=== PATIENT | female | born 1955 | race Caucasian/White ===

== ENCOUNTER 2017-01-04 11:52 | Observation (INO) | payer OTHER ==
[~2017-01-04] VITALS: Ht 158.8 cm; Wt 51.9 kg
[2017-01-04] VITALS (7 sets, daily range): BP systolic 115–134; BP diastolic 57–65; PULSE 76–103; RESP 14–18; TEMP 97.9–98.3; O2SAT 96–100
[~2017-01-04 11:52] MED LIST: ALPR.25 PO; OXYC10TA8 PO; ZOFR4TAB3 PO
[2017-01-04] MEDS ORDERED: SODIUM CHLOR 0.9% 1000 ML INJ 1,000 ML IV SCH (12:11)
[2017-01-04] MEDS ORDERED: TAMOPOW11 PO (12:15)
[2017-01-04] MEDS ORDERED: ZOFR4TAB3 SL (12:15)
[2017-01-04] MEDS ORDERED: OXYC-395 PO (12:15)
[2017-01-04] MEDS ORDERED: ONDANSETRON HCL 4 MG/2 ML VIAL IVP ONE (12:15)
[2017-01-04] MEDS ORDERED: ALPR0.25 PO (12:15)
[2017-01-04] MEDS ORDERED: CEFU250T PO (12:15)
[2017-01-04] MEDS ORDERED: ASPIRIN 81 MG CHEW TAB PO ONE (12:15)
--- NOTE | 2017-01-04 12:29 | PD ---
HPI Chief Complaint: Chest Pain Time Seen by Provider: 12:21 Travel History International Travel<30 days: No Contact w/Intl Traveler<30days: No Traveled to known affect area: No History of Present Illness HPI Patient comes into the advice of her oncologist Dr. Cai for evaluation of chest pain that began around 2-3am that awoke her with the feeling of sharp substernal chest pain radiating to her back with associated feeling short of breath. Patient states she may have coughed causing pain, but is uncertain. Pain is constant and radiates to her back. Pain is worse with coughing, deep inspiration, and certain movement. Patient denies doing anything for this. Denies anything making the pain better. Patient states she has been feeling that she was coming down with something since Tuesday and was started on antibiotics by her primary care doctor. Patient has been taking antibiotics along with Tylenol for subjective fevers last dose yesterday. Patient states on Tuesday started having a scratchy throat and a cough. Patient reports continued nausea and vomiting from her chemotherapy and is unchanged since onset of symptoms. Denies any headache, neck pain, abdominal pain, diarrhea, or numbness or tingling anywhere. Patient states she initially got sick from her , who had similar prior to her getting sick. PFSH Past Medical History Blood Disorders: No Anxiety: Yes Depression: No Heart Rhythm Problems: No Cancer: Yes (R. breast cancer-lymph nodes ) Cardiovascular Problems: Yes (HTN) High Cholesterol: Yes Chemotherapy: Yes Chest Pain: Yes Congestive Heart Failure: No Diabetes: No Endocrine: No Genitourinary: Yes (left kidney is smaller than right) Hypertension: Yes Immune Disorder: Yes Implanted Vascular Access Dvce: Yes Kidney Stones: No Musculoskeletal: Yes Neurologic: No Psychiatric: Yes Reproductive: No Respiratory: No Radiation Therapy: No Renal Failure: No Sickle Cell Disease: No Thyroid Disease: No Tetanus Vaccination: > 5 Years Influenza Vaccination: No Past Surgical History Abdominal Surgery: No AICD: No Arteriovenous Shunt: No Body Medical Devices: infusaport Cardiac Surgery: No Section: Yes (1975) Ear Surgery: Yes Endocrine Surgery: Yes Eye Surgery: Yes Genitourinary Surgery: No Gynecologic Surgery: Yes (hysterectomy, , rt. breast lumpectomy) Hysterectomy: Yes Insulin Pump: No Joint Replacement: No Oral Surgery: Yes Thoracic Surgery: No Tonsillectomy: Yes Other Surgery: Yes (lumpectomy right side ) Social History Alcohol Use: Yes (RARELY) Tobacco Use: No Substance Use: No Allergies-Medications (Allergen,Severity, Reaction): Coded Allergies: Codeine (Verified Allergy, Severe, ITCHING, 01/04/17) Tenormin (Verified Allergy, Severe, CRAMPING / RASH, 01/04/17) Visken (Verified Allergy, Severe, CRAMPING, 01/04/17) Reported Meds & Prescriptions Reported Meds & Active Scripts Active Reported Cefuroxime (Cefuroxime Axetil) 250 Mg Tab 250 Mg PO BID Tamoxifen Citrate (Tamoxifen Citrate (Bulk)) 1 Pow Pow 20 Mg PO Oxycodone (Oxycodone HCl) 10 Mg Tab 10 Mg PO Q4H PRN Alprazolam 0.25 Mg Tab 0.25 Mg PO Q6H PRN Zofran Odt (Ondansetron Odt) 4 Mg Tab 4 Mg SL Q6HR PRN Review of Systems Except as stated in HPI: all other systems reviewed are Neg Physical Exam Narrative GENERAL: Well-developed, well nourished, in no acute distress, and non-ill appearing. SKIN: Focused skin assessment warm and dry. HEAD: Atraumatic. Normocephalic. EYES: Pupils equal and round. EOMI. No scleral icterus. No injection or drainage. ENT: No nasal bleeding or discharge. Mucous membranes pink and moist. Tympanic membranes pearly andrews bilaterally. Posterior pharynx nonerythematous and without exudate. Uvula is midline. NECK: Trachea midline. No JVD. Supple. No nuclear rigidity. CARDIOVASCULAR: Regular rate and rhythm. No murmur appreciated. RESPIRATORY: No accessory muscle use. No respiratory distress. Clear to auscultation. Breath sounds equal bilaterally. GASTROINTESTINAL: Abdomen soft, non-tender, nondistended. Hepatic and splenic margins not palpable. Normal bowel sounds 4. No pulsatile mass. MUSCULOSKELETAL: No obvious deformities. No clubbing. No cyanosis. No edema. Full range of motion. NEUROLOGICAL: Awake and alert. No obvious cranial nerve deficits. Motor grossly within normal limits. Normal speech. PSYCHIATRIC: Appropriate mood and affect; insight and judgment normal. Data Data Last Documented VS Vital Signs Date Time Temp Pulse Resp B/P Pulse Ox O2 Delivery O2 Flow Rate FiO2 01/04/17 12:38 85 18 118/57 97 Room Air 01/04/17 11:54 98.3 Orders Electrocardiogram (01/04/17 12:11) Ckmb (Isoenzyme) Profile (01/04/17 12:11) Complete Blood Count With Diff (01/04/17 12:11) Magnesium (Mg) (01/04/17 12:11) Prothrombin Time / Inr (Pt) (01/04/17 12:11) Act Partial Throm Time (Ptt) (01/04/17 12:11) Troponin I (01/04/17 12:11) Chest, Single Ap (01/04/17 12:11) Ecg Monitoring (01/04/17 12:11) Bilateral Bp Monitoring (01/04/17 12:11) Iv Access Insert/Monitor (01/04/17 12:11) Oximetry (01/04/17 12:11) Oxygen Administration (01/04/17 12:11) Aspirin Chew (Aspirin Chew) (01/04/17 12:15) Sodium Chloride 0.9% Flush (Ns Flush) (01/04/17 12:15) Lactic Acid Sepsis Protocol (01/04/17 12:11) Blood Culture (01/04/17 12:11) Comprehensive Metabolic Panel (01/04/17 12:11) Influenzae A/B Antigen (01/04/17 12:11) Group A Rapid Strep Screen (01/04/17 12:11) Lipase (01/04/17 12:11) Ondansetron Inj (Zofran Inj) (01/04/17 12:15) Sodium Chlor 0.9% 1000 Ml Inj (Ns 1000 M (01/04/17 12:11) Urinalysis - C+S If Indicated (01/04/17 12:22) Ct Pulmonary Angiogram (01/04/17 ) Strep Culture (Group A) (01/04/17 12:35) Urine Culture (01/04/17 12:40) Cefepime Inj (Maxipime Inj) (01/04/17 13:42) Sodium Chlorid 0.9% 500 Ml Inj (Ns 500 M (01/04/17 14:30) Ibuprofen (Motrin) (01/04/17 15:45) Oxycodone-Acetamin 10-325 Mg (Percocet 1 (01/04/17 16:15) Admit Order (Ed Use Only) (01/04/17 16:08) Labs Laboratory Tests Test 01/04/17 01/04/17 01/04/17 12:25 12:32 12:40 White Blood Count 1.7 TH/MM3 Red Blood Count 4.34 MIL/MM3 Hemoglobin 13.1 GM/DL Hematocrit 37.4 % Mean Corpuscular Volume 86.2 FL Mean Corpuscular Hemoglobin 30.3 PG Mean Corpuscular Hemoglobin 35.1 % Concent Red Cell Distribution Width 14.5 % Platelet Count 106 TH/MM3 Mean Platelet Volume 7.9 FL Neutrophils (%) (Auto) 54.0 % Lymphocytes (%) (Auto) 29.7 % Monocytes (%) (Auto) 15.3 % Eosinophils (%) (Auto) 0.7 % Basophils (%) (Auto) 0.3 % Neutrophils # (Auto) 0.9 TH/MM3 Lymphocytes # (Auto) 0.5 TH/MM3 Monocytes # (Auto) 0.3 TH/MM3 Eosinophils # (Auto) 0.0 TH/MM3 Basophils # (Auto) 0.0 TH/MM3 CBC Comment AUTO DIFF Differential Total Cells 100 Counted Neutrophils % (Manual) 41 % Band Neutrophils % 13 % Lymphocytes % 37 % Monocytes % 9 % Neutrophils # (Manual) 0.9 TH/MM3 Differential Comment FINAL DIFF MANUAL Platelet Estimate LOW Platelet Morphology Comment NORMAL Prothrombin Time 10.7 SEC Prothromb Time International 1.0 RATIO Ratio Activated Partial 28.1 SEC Thromboplast Time Sodium Level 142 MEQ/L Potassium Level 3.9 MEQ/L Chloride Level 105 MEQ/L Carbon Dioxide Level 29.5 MEQ/L Anion Gap 8 MEQ/L Blood Urea Nitrogen 18 MG/DL Creatinine 1.05 MG/DL Estimat Glomerular Filtration 53 ML/MIN Rate Random Glucose 85 MG/DL Calcium Level 8.6 MG/DL Magnesium Level 1.9 MG/DL Total Bilirubin 0.3 MG/DL Aspartate Amino Transf 16 U/L (AST/SGOT) Alanine Aminotransferase 15 U/L (ALT/SGPT) Alkaline Phosphatase 72 U/L Total Creatine Kinase 69 U/L Troponin I LESS THAN 0.02 NG/ML Total Protein 6.4 GM/DL Albumin 3.6 GM/DL Lipase 144 U/L Lactic Acid Level 0.9 mmol/L Urine Color YELLOW Urine Turbidity HAZY Urine pH 5.5 Urine Specific [place] 1.019 Urine Protein 100 mg/dL Urine Glucose (UA) NEG mg/dL Urine Ketones TRACE mg/dL Urine Occult Blood TRACE Urine Nitrite NEG Urine Bilirubin NEG Urine Urobilinogen LESS THAN 2.0 MG/DL Urine Leukocyte Esterase SMALL Urine WBC 16 /hpf Urine Squamous Epithelial 15 /hpf Cells Urine Transitional Epithelial 2 /hpf Cells Urine Bacteria RARE /hpf Urine Hyaline Casts 1 /lpf Urine Mucus FEW /lpf Microscopic Urinalysis Comment CULTURE INDICATED MDM Medical Decision Making Medical Screen Exam Complete: Yes Emergency Medical Condition: Yes Interpretation(s) EKG reviewed by Dr. Fairchild, show normal sinus rhythm with a ventricular rate of 83. No STEMI. Differential Diagnosis Sepsis, pneumonia, acute coronary syndrome, pericarditis, myocarditis, endocarditis, pancreatitis, PE, influenza, strep pharyngitis, costochondritis, other Narrative Course Patient reassessed status post CTA and reports her chest pain got severe with laying flat for CTA. Patient reports pain improved once sitting back up. Patient was asked to pain forward which she reports even more improvement of her pain even more. Patient was seen and exam. Initial laboratory and radiological studies were obtained and reviewed. Discussed patient with Dr. Fairchild, who is in agreement with plan of care and disposition. Discussed all findings and plan of care with patient who is agreeable for admission. All questions were answered. Sepsis Criteria SIRS Criteria (2 or more): Heart rate over 90, WBC > 69138, < 4000 or > 10% bands Sepsis Criteria (SIRS+source): Infect source susp/known Physician Communication Physician Communication [id number] I discussed patient with Dr. Moreno, patient's oncologist, who is okay with patient having ibuprofen and does not feel like his anything more to do from his standpoint and is in agreement with admitting patient to hospital. [address] Zurita, who is agreeable to admit the patient. Diagnosis Primary Impression: Sepsis Qualified Code: A41.9 - Sepsis, due to unspecified organism Additional Impressions: Pericarditis Qualified Code: I30.9 - Acute pericarditis, unspecified type UTI (urinary tract infection) Qualified Code: N39.0 - Urinary tract infection without hematuria, site unspecified Admitting Information Admitting Physician Requests: Admit Ernie Rangel Jan 04, 2017 12:29
[2017-01-04 12:45] LABS: AUTOMATED NEUTROPHIL # 0.9 TH/MM3 (1.8-7.7); BASOPHIL % 0.3 % (0.0-2.0); EOSINOPHIL % 0.7 % (0.0-4.0); HEMATOCRIT 37.4 % (35.0-46.0); LYMPH % 29.7 % (9.0-44.0); LYMPHOCYTE # 0.5 TH/MM3 (1.0-4.8); MEAN CELL VOLUME 86.2 FL (80.0-100.0); MEAN CORPUSCULAR HEMOGLOBIN 30.3 PG (27.0-34.0); MEAN CORPUSCULAR HGB CONC 35.1 % (32.0-36.0); MONO % 15.3 % (0.0-8.0); PLATELET COUNT 106 TH/MM3 (150-450); RED BLOOD COUNT 4.34 MIL/MM3 (4.00-5.30); RED CELL DISTRIBUTION WIDTH 14.5 % (11.6-17.2); WHITE BLOOD COUNT 1.7 TH/MM3 (4.0-11.0)
[2017-01-04 12:46] LABS: HEMO FLAGS AUTO DIFF
[2017-01-04 12:53] LABS: APTT (PATIENT) 28.1 SEC (24.3-30.1); PROTHROMBIN TIME - PATIENT 10.7 SEC (9.8-11.6)
[2017-01-04 12:59] LABS: ALT (GPT) 15 U/L (10-53); ANION GAP 8 MEQ/L (5-15); AST (GOT) 16 U/L (15-37); BICARBONATE 29.5 MEQ/L (21.0-32.0); BLOOD UREA NITROGEN 18 MG/DL (7-18); CHLORIDE 105 MEQ/L (98-107); GLOMERULAR FILTRATION RATE 53 ML/MIN (>89); MAGNESIUM 1.9 MG/DL (1.5-2.5); POTASSIUM 3.9 MEQ/L (3.5-5.1); SODIUM (NA) 142 MEQ/L (136-145)
[2017-01-04 13:03] LABS: ALKALINE PHOSPHATASE 72 U/L (45-117); TOTAL BILIRUBIN ADULT 0.3 MG/DL (0.2-1.0)
[2017-01-04 13:06] LABS: BACTERIA, URINE RARE /hpf; BLOOD, URINE TRACE (NEG); COMMENT (UR) CULTURE INDICATED; CULTURE IF INDICATED CULTURE INDICATED; GLUCOSE,URINE NEG (NEG); HYALINE CAST, URINE 1 /lpf (RARE); KETONE, URINE TRACE mg/dL (NEG); MUCUS URINE FEW /lpf (OCC); NITRITE,URINE NEG (NEG); PH, URINE 5.5 (5.0-8.5); SQUAMOUS EPITHELIAL CELL URINE 15 /hpf (0-5); TRANSITIONAL EPI CELLS, URINE 2 /hpf; URINE COLOR YELLOW (YELLW/STRAW)
[2017-01-04 13:16] LABS: CREATINE KINASE 69 U/L (26-192)
[2017-01-04 13:17] LABS: BANDS 13 % (0-6); NEUTROPHIL # MANUAL DIFF 0.9 TH/MM3 (1.8-7.7); POLYS (SEG NEUTROPHILS) 41 % (16-70); WBC DIFF SAMPLE 100
[2017-01-04 13:18] LABS: PLATELET ESTIMATE SMEAR LOW (NORMAL); PLATELET MORPHOLOGY NORMAL (NORMAL); SCAN/DIFF FINAL DIFF MANUAL
[2017-01-04] MEDS ORDERED: CEFEPIME INJ 2,000 MG in SODIUM CHLORIDE 0.9% INJ 100 ML IV STA (13:42)
--- NOTE | 2017-01-04 14:06 | RADRPT ---
EXAM DATE/TIME: 01/04/2017 12:28 [facility] COMPARISON: No previous studies available for comparison. INDICATIONS : Cough MEDICAL HISTORY : Carcinoma, breast. SURGICAL HISTORY : None. ENCOUNTER: Initial ACUITY: 3 days PAIN SCORE: 0/10 LOCATION: Bilateral chest FINDINGS: A single view of the chest demonstrates the lungs to be symmetrically aerated without evidence of mas s, infiltrate or effusion. The cardiomediastinal contours are unremarkable. Osseous structures are intact. [id number] is in place via right subclavian approach with its tip in the superior vena cav a. CONCLUSION: 1. No acute cardiopulmonary disease. Thom Sellers MD on January 04, 2017 at 14:04 Board Certified Radiologist. This report was verified electronically.
[2017-01-04] MEDS ORDERED: SODIUM CHLORID 0.9% 500 ML INJ 500 ML IV ONE (14:30)
[2017-01-04] MEDS ORDERED: IOHEXOL 350 MG/ML 10 ML VIAL (for RAD DIAG) IV ONE (14:51)
--- NOTE | 2017-01-04 15:18 | RADRPT ---
EXAM DATE/TIME: 01/04/2017 14:51 [facility] COMPARISON: No previous studies available for comparison. INDICATIONS : Chest pain and cough. IV CONTRAST: 50 cc Omnipaque 350 (iohexol) IV RADIATION DOSE: 21.72 CTDIvol (mGy) MEDICAL HISTORY : Hypertension. Carcinoma, breast. SURGICAL HISTORY : None. ENCOUNTER: Initial ACUITY: 1 week PAIN SCALE: 4/10 LOCATION: Bilateral chest TECHNIQUE: Volumetric scanning of the chest was performed using a pulmonary embolism protocol MIP images were re constructed. Using automated exposure control and adjustment of the mA and/or kV according to patien t size, radiation dose was kept as low as reasonably achievable to obtain optimal diagnostic quality images. FINDINGS: PULMONARY ARTERIES: No filling defects are seen in the pulmonary arteries through the segmental level. LUNGS: There is no consolidation or pneumothorax . No concerning pulmonary nodule is visualized. PLEURAE: There is no pleural thickening or pleural effusion. MEDIASTINUM: There is good visualization of the great vessels of the middle mediastinum. No evidence of mediastin al or hilar adenopathy/mass. MUSCULOSKELETAL: Within normal limits for patient age. MISCELLANEOUS: The visualized upper abdominal organs demonstrate no acute abnormality. CONCLUSION: Normal examination. Fahad Miramontes MD on January 04, 2017 at 15:11 Board Certified Radiologist. This report was verified electronically.
[2017-01-04] MEDS ORDERED: IBUPROFEN 800 MG TAB PO ONE (15:45)
[2017-01-04] MEDS ORDERED: oxyCODONE/ACETAMINOPHEN 10 MG/325 MG TAB PO ONE (16:15)
--- NOTE | 2017-01-04 16:52 | HHI.HP ---
HPI Service CP Hospitalists Primary Care Physician Alphonso Taylor MD Admission Diagnosis chest pain. cough Chief Complaint: chest pain/cough Travel History International Travel<30 Days: No Contact w/Intl Traveler <30 Da: No Traveled to Known Affected Are: No History of Present Illness Pt is 61 yo with hx breast ca on chemo with Dr Cai. Reports developing a scratchy throat then awoke with ant cp with cough and some discomfort taking a deep breath. some f/c. no n/v/d. The concern in ED was for pericarditis. ED called oncology and decision made to admit her for evaluation. Pt has been on abx per her pcp over the weekend. Review of Systems Other cough ant lower chest/upper abdomen pain worse with palpation/cough scratchy throat. 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 - Pt s/p right breast lumpectomy with sentinel node biopsy in 01/2016 - Pt is currently on chemotherapy... follows with Dr. Cai. -anxiety -ileus Reported Medications Cefuroxime (Cefuroxime Axetil) 250 Mg Tab 250 Mg PO BID Tamoxifen Citrate (Tamoxifen Citrate (Bulk)) 1 Pow Pow 20 Mg PO Oxycodone (Oxycodone HCl) 10 Mg Tab 10 Mg PO Q4H PRN Alprazolam 0.25 Mg Tab 0.25 Mg PO Q6H PRN Zofran Odt (Ondansetron Odt) 4 Mg Tab 4 Mg SL Q6HR PRN Allergies: Coded Allergies: Codeine (Verified Allergy, Severe, ITCHING, 01/04/17) Tenormin (Verified Allergy, Severe, CRAMPING / RASH, 01/04/17) Visken (Verified Allergy, Severe, CRAMPING, 01/04/17) Family History nc Social History currently no tob/etoh Physical Exam Vital Signs anxious heart reg. no murmer/rub lung course bs right lung abd s/nt ext no edema tenderness over ant chest wall around cartilages/sternum and epigastrium. Vital Signs Date Time Temp Pulse Resp B/P Pulse Ox O2 Delivery O2 Flow Rate FiO2 01/04/17 16:25 81 18 120/61 100 Room Air 01/04/17 12:38 85 18 118/57 97 Room Air 01/04/17 12:18 97 Room Air 01/04/17 12:18 18 97 Room Air 01/04/17 12:04 94 18 96 Room Air 01/04/17 11:54 98.3 103 14 119/59 97 Laboratory Laboratory Tests Test 01/04/17 01/04/17 01/04/17 12:25 12:32 12:40 White Blood Count 1.7 Red Blood Count 4.34 Hemoglobin 13.1 Hematocrit 37.4 Mean Corpuscular Volume 86.2 Mean Corpuscular Hemoglobin 30.3 Mean Corpuscular Hemoglobin 35.1 Concent Red Cell Distribution Width 14.5 Platelet Count 106 Mean Platelet Volume 7.9 Neutrophils (%) (Auto) 54.0 Lymphocytes (%) (Auto) 29.7 Monocytes (%) (Auto) 15.3 Eosinophils (%) (Auto) 0.7 Basophils (%) (Auto) 0.3 Neutrophils # (Auto) 0.9 Lymphocytes # (Auto) 0.5 Monocytes # (Auto) 0.3 Eosinophils # (Auto) 0.0 Basophils # (Auto) 0.0 CBC Comment AUTO DIFF Differential Total Cells 100 Counted Neutrophils % (Manual) 41 Band Neutrophils % 13 Lymphocytes % 37 Monocytes % 9 Neutrophils # (Manual) 0.9 Differential Comment FINAL DIFF MANUAL Platelet Estimate LOW Platelet Morphology Comment NORMAL Prothrombin Time 10.7 Prothromb Time International 1.0 Ratio Activated Partial 28.1 Thromboplast Time Sodium Level 142 Potassium Level 3.9 Chloride Level 105 Carbon Dioxide Level 29.5 Anion Gap 8 Blood Urea Nitrogen 18 Creatinine 1.05 Estimat Glomerular Filtration 53 Rate Random Glucose 85 Calcium Level 8.6 Magnesium Level 1.9 Total Bilirubin 0.3 Aspartate Amino Transf 16 (AST/SGOT) Alanine Aminotransferase 15 (ALT/SGPT) Alkaline Phosphatase 72 Total Creatine Kinase 69 Troponin I LESS THAN 0.02 Total Protein 6.4 Albumin 3.6 Lipase 144 Lactic Acid Level 0.9 Urine Color YELLOW Urine Turbidity HAZY Urine pH 5.5 Urine Specific [place] 1.019 Urine Protein 100 Urine Glucose (UA) NEG Urine Ketones TRACE Urine Occult Blood TRACE Urine Nitrite NEG Urine Bilirubin NEG Urine Urobilinogen LESS THAN 2.0 Urine Leukocyte Esterase SMALL Urine WBC 16 Urine Squamous Epithelial 15 Cells Urine Transitional Epithelial 2 Cells Urine Bacteria RARE Urine Hyaline Casts 1 Urine Mucus FEW Microscopic Urinalysis Comment CULTURE INDICATED Date/Time Procedure Status Source Growth 01/04/17 12:40 Urine Culture Received Urine Clean Catch Pending 01/04/17 12:35 Group A Streptococcus Screen (OVI) - Final Complete Throat 01/04/17 12:35 Group A Streptococcus Screen Received Throat Pending 01/04/17 12:30 Influenza Types A,B Antigen (OVI) - Final Complete Nasal Washing NEGATIVE FOR FLU A AND B ANTIGEN.... 01/04/17 12:30 Aerobic Blood Culture Received Blood Peripheral Pending 01/04/17 12:30 Anaerobic Blood Culture Received Blood Peripheral Pending Result Diagram: 01/04/17 1225 01/04/17 1225 Assessment and Plan Problem List: (1) Chest pain Status: Acute Plan: Pt seems to have started with uri moving into upper chest. coughing with associated ant cp and tenderness on exam. probably costochondritis. no pulmonary embolism on CTA. no areas of PNA on CTA. will evaluate the myocardium and pericardium for inflammatory process. thrombocytopenia/leukopenia felt related to chemo. viral illness also considered. echo ordered. cont bx solumedrol/nebs inc spirometer. oncology evaluation. dvt prophylaxis. (2) Leukopenia Status: Acute Plan: see above (3) Thrombocytopenia Status: Acute Plan: see above (4) Breast cancer Status: Chronic Plan: chemo agents per Dr Ayala Zurita,Blair Chen MD Jan 04, 2017 16:52
[2017-01-04] MEDS ORDERED: ONDANSETRON HCL 4 MG/2 ML VIAL IV PUSH PRN (17:15)
[2017-01-04] MEDS ORDERED: ALPRAZolam 0.25 MG TAB PO PRN (17:15)
[2017-01-04] MEDS ORDERED: LEVOFLOXACIN 500 MG TAB PO SCH (18:00)
[2017-01-04] MEDS: methylPREDNISolone SOD SUCC 125 MG/2 ML VIAL IV PUSH SCH ×2 (18:01→22:51)
[2017-01-04] MEDS: SODIUM CHLORIDE 0.9% FLUSH 10 ML FLUSH IVF PRN (22:52)
[2017-01-05] VITALS: BP 130/63; PULSE 79; RESP 16; TEMP 98.1; O2SAT 96
[2017-01-05 04:00] VITALS: BP 118/65; PULSE 74; RESP 16; TEMP 97.6; O2SAT 97
[2017-01-05] MEDS: methylPREDNISolone SOD SUCC 125 MG/2 ML VIAL IV PUSH SCH ×3 (05:20→18:34)
--- NOTE | 2017-01-05 05:27 | MB ---
cc: AIDEN KENT DATE OF 1955. DATE OF CONSULTATION 01/04/2017 REASON FOR CONSULTATION Patient with a history of breast cancer who is currently getting adjuvant anti-HER2 therapy who presents today with atypical chest pain. CHIEF COMPLAINT Chest discomfort. HISTORY OF PRESENT ILLNESS Ms. High is a 61-year-old female who has a past medical history of invasive ductal carcinoma of the right breast. This was a poorly differentiated breast carcinoma which was Stage II-B. This is an ER-GA positive, HER2 positive breast cancer. The patient completed adjuvant chemotherapy treatments with Adriamycin, Cytoxan and Taxol and Herceptin. Subsequently she was treated with adjuvant radiation treatments. The patient is currently receiving anti-HER2 therapy with Herceptin. She is also on tamoxifen. The patient has a history of significant osteoporosis and osteopenia and she is currently on Fosamax. She has a history of acid reflux and she is on a PPI. She also has a past history of costochondritis of the left lower ribs and she has undergone extensive testing previously including CT scans and cardiology workup which was all negative and this was thought to be musculoskeletal in nature. The patient called the oncology clinic with complaints of chest pain which began last night at 2 to 3 a.m. She woke up with sharp chest pain which was radiating to her back and she felt short of breath. She has been having an upper respiratory infection which was treated by her primary care doctor with antibiotics. She endorses chest pain which was exacerbated by coughing and deep inspiration and movement. REVIEW OF SYSTEMS A comprehensive 14-point review of systems was completed which is negative except as described in the HPI. PAST MEDICAL HISTORY 1. History of invasive breast carcinoma. 2. History of osteoporosis and osteoarthritis. 3. History of anxiety 4. Gastroesophageal reflux disease. 5. Costochondritis. PAST SURGICAL HISTORY 1. Breast lumpectomy. 2. Breast biopsy. 3. . 4. Hysterectomy. 5. Wvaelh-E-Boky placement. SOCIAL HISTORY She is . She lives with her . She does not smoke cigarettes. She does not drink alcohol. No illicit drug use. FAMILY HISTORY Reviewed and is noncontributory to this admission. MEDICATIONS 1. Tamoxifen 20 mg one tablet p.o. daily. 2. Oxycodone 10 mg one tablet p.o. q.4 hours p.r.n. 3. Alprazolam 0.25 mg one tablet p.o. q.6 hours p.r.n. 4. Zofran ODT q.6 hours p.r.n. 5. Fosamax 70 mg q. weekly. PHYSICAL EXAMINATION VITAL SIGNS: Blood pressure is 115/65, pulse is in the 70s, temperature is 97.9, O2 sats are 96% on room air. GENERAL: Thin-appearing female in no apparent distress. HEENT: Pupils are equal, round, reactive to light. EOMI. No oral thrush. No lesion. NECK: Supple. No JVD. No bruits. No lymphadenopathy. CHEST: Clear to auscultation bilaterally. CARDIAC: S1-S2, regular rate and rhythm. ABDOMEN: Soft, nontender, nondistended. Bowel sounds are present. EXTREMITIES: Without any edema, erythema or cyanosis. SKIN: Without any petechiae, lesion or bruises. NEURO: No focal deficits. PSYCHIATRIC: Mood and affect is appropriate. LABORATORY DATA WBC 1.7, hemoglobin 13.1, platelet count 106. Serum Chemistries: Sodium 142, potassium 3.9, chloride 105, CO2 29.5, BUN 18, creatinine 1.05, GFR is 53, lactic acid 0.9, calcium 8.6, magnesium 1.9, total bilirubin 0.3, AST 16, ALT 15, alk phos 72. CK 69. Troponin less 0.02. Total protein 6.4, albumin 3.6, lipase 144. Coags - PT ___.7, INR 1, PTT 28.1. Urinalysis shows trace ketones, trace alcohol blood, nitrite negative, bilirubin negative, leuko esterase small, WBCs are high, urine bacteria rare. IMAGING STUDIES CT angiogram without any abnormalities. Chest x-ray - No acute cardiopulmonary disease. ASSESSMENT AND PLAN This is a 61-year-old female with history of Stage II invasive breast cancer. This a hormone receptor breast cancer which is also HER2 positive. She has undergone lumpectomy followed by adjuvant chemotherapy. She also received adjuvant radiation treatments. She is currently on anti-HER2 therapy with Herceptin. She presents to the emergency department with chest pain. 1. Pleuritic chest pain: Troponins are negative. Given the fact that she is on anti-HER2 therapy and has received anthracycline in the past, I would recommend obtaining a 2 D echocardiogram. There are no overt signs and symptoms of heart failure. Troponins are negative which is reassuring. If she continues to have persistent chest pain, she will need further cardiology workup. CT angiogram was negative for pulmonary embolism. She has had costochondritis in the past but she tells me that her symptoms are different today. She is also on Fosamax on a weekly basis. This drug is to be taken in an upright position and usually patients are advised to stay upright for 30 minutes after taking Fosamax. If these directions are not followed, the patient can have worsening esophageal reflux and burning. This does not seem to be reason for her chest discomfort. It is more associated with cough. Pericarditis is also a possibility. I agree with anti-inflammatory drugs and steroid trial. 2. Mild leukopenia and thrombocytopenia. This is secondary to chemotherapy effect. Her ANC is above 500 at this point. We will continue to monitor. 3. UTI. Urine cultures are pending. I agree with IV antibiotics. Blood cultures are pending. Urine cultures are also pending. Thank you for allowing me to participate in the care of this patient. I will continue to follow this patient along. MD LEXY Tovar/HENRY /11:36 PM /5:02 AM MTDAngel
[2017-01-05 07:57] LABS: AUTOMATED NEUTROPHIL # 0.6 TH/MM3 (1.8-7.7); BASOPHIL % 0.4 % (0.0-2.0); HEMATOCRIT 33.6 % (35.0-46.0); LYMPH % 30.3 % (9.0-44.0); LYMPHOCYTE # 0.3 TH/MM3 (1.0-4.8); MEAN CORPUSCULAR HEMOGLOBIN 29.4 PG (27.0-34.0); MEAN CORPUSCULAR HGB CONC 34.2 % (32.0-36.0); MONO % 3.9 % (0.0-8.0); NEUT % 65.4 % (16.0-70.0); PLATELET COUNT 98 TH/MM3 (150-450); RED BLOOD COUNT 3.91 MIL/MM3 (4.00-5.30); RED CELL DISTRIBUTION WIDTH 14.6 % (11.6-17.2)
[2017-01-05 08:00] VITALS: BP 134/70; PULSE 76; PULSE 79; RESP 18; TEMP 97.4; O2SAT 97
[2017-01-05 08:02] LABS: HEMO FLAGS AUTO DIFF
[2017-01-05 08:35] LABS: POTASSIUM 4.4 MEQ/L (3.5-5.1)
[2017-01-05 08:57] LABS: BANDS 4 % (0-6); NEUTROPHIL # MANUAL DIFF 0.8 TH/MM3 (1.8-7.7); POLYS (SEG NEUTROPHILS) 71 % (16-70); WBC DIFF SAMPLE 100
[2017-01-05 08:58] LABS: PLATELET ESTIMATE SMEAR LOW (NORMAL); PLATELET MORPHOLOGY NORMAL (NORMAL); SCAN/DIFF FINAL DIFF MANUAL
--- NOTE | 2017-01-05 10:11 | HHI.PR ---
Subjective Remarks ant chest wall pain a little better. still more painful to cough. Objective Vitals nad heart reg. no murmer/rub lung no crackles/wheeze.. with inspiration did have some mucous/congestion sound in upper airway. Vital Signs Date Time Temp Pulse Resp B/P Pulse Ox O2 Delivery O2 Flow Rate FiO2 01/05/17 04:00 97.6 74 16 118/65 97 01/05/17 00:00 98.1 79 16 130/63 96 01/04/17 20:44 83 01/04/17 20:00 97.9 78 18 115/65 96 01/04/17 17:50 76 18 134/63 97 Room Air 01/04/17 16:25 81 18 120/61 100 Room Air 01/04/17 12:38 85 18 118/57 97 Room Air 01/04/17 12:18 97 Room Air 01/04/17 12:18 18 97 Room Air 01/04/17 12:04 94 18 96 Room Air 01/04/17 11:54 98.3 103 14 119/59 97 01/04/17 01/04/17 01/05/17 15:00 23:00 07:00 Intake Total 240 ml 240 ml Balance 240 ml 240 ml Intake Oral 240 ml 240 ml # Voids 2 1 # Bowel Movements 0 0 Result Diagram: 01/05/17 0739 01/05/17 0739 A/P Problem List: (1) Chest pain Status: Acute Plan: Pt seems to have started with uri moving into upper chest. coughing with associated ant cp and tenderness on exam. probably costochondritis. no pulmonary embolism on CTA. no areas of PNA on CTA. will evaluate the myocardium and pericardium for inflammatory process. thrombocytopenia/leukopenia felt related to chemo. viral illness also considered. echo ordered and pending cont abx solumedrol/nebs added inc spirometer. oncology evaluation. dvt prophylaxis. (2) Leukopenia Status: Acute Plan: see above (3) Thrombocytopenia Status: Acute Plan: see above (4) Breast cancer Status: Chronic Plan: chemo agents per Blair Carter MD Jan 05, 2017 10:11
[2017-01-05] MEDS ORDERED: NAPROXEN 500 MG TAB PO ONE (10:15)
[2017-01-05] MEDS ORDERED: BISACODYL EC 5 MG TABEC PO PRN (10:15)
[2017-01-05] MEDS ORDERED: LACTULOSE SYRUP 20 GM/30 ML CUP PO PRN (10:15)
[2017-01-05] MEDS ORDERED: DOCUSATE SODIUM 100 MG CAP PO ONE (10:15)
[2017-01-05] MEDS ORDERED: PANTOPRAZOLE SOD 40 MG DELAYED RELEASE TAB PO ONE (10:15)
--- NOTE | 2017-01-05 10:38 | EC ---
Study Study Date:01/05/2017 STUDY CONCLUSIONS SUMMARY - Procedure narrative: Transthoracic echocardiography. Image quality was good. Scanning was performed from the parasternal, apical, and subcostal acoustic windows. - Left ventricle: The cavity size was normal. Wall thickness was normal. Systolic function was normal. The estimated ejection fraction was in the range of 55% to 60%. Wall motion was normal; there were no regional wall motion abnormalities. - Mitral valve: Trace regurgitation. - Tricuspid valve: Trace regurgitation. If LV function is below 40, please consider prescribing an ACEI or ARB or document rationale for non-use. PROCEDURE DATA STUDY STATUS: Elective. Procedure: Transthoracic echocardiography. Image quality was good. Scanning was performed from the parasternal, apical, and subcostal acoustic windows. Study completion: The patient tolerated the procedure well. Transthoracic echocardiography. M-mode, complete 2D, complete spectral Doppler, and color Doppler. Patient status: Inpatient. CARDIAC ANATOMY LEFT VENTRICLE: The cavity size was normal. Wall thickness was normal. Systolic function was normal. The estimated ejection fraction was in the range of 55% to 60%. Wall motion was normal; there were no regional wall motion abnormalities. AORTIC VALVE: Trileaflet; normal thickness leaflets. Doppler: Transvalvular velocity was within the normal range. There was no stenosis. No regurgitation. AORTA: Aortic root: The aortic root was normal in size. MITRAL VALVE: Structurally normal valve. Doppler: Transvalvular velocity was within the normal range. There was no evidence for stenosis. Trace regurgitation. Peak gradient: 3mm Hg (D). LEFT ATRIUM: The atrium was normal in size. RIGHT VENTRICLE: The cavity size was normal. Wall thickness was normal. PULMONIC VALVE: Doppler: Transvalvular velocity was within the normal range. There was no evidence for stenosis. No regurgitation. TRICUSPID VALVE: Structurally normal valve. Doppler: Transvalvular velocity was within the normal range. Trace regurgitation. PULMONARY ARTERY: The main pulmonary artery was normal-sized. Systolic pressure was within the normal range. RIGHT ATRIUM: The atrium was normal in size. PERICARDIUM: There was no pericardial effusion. SYSTEMIC VEINS: Inferior vena cava: The vessel was normal in size. BASIC MEASUREMENTS ADULT Normal Left ventricle LV internal dimension, ED, chordal level, *41.6 mm 43-52 PLAX LV internal dimension, ES, chordal level, 31.8 mm 23-38 PLAX Fractional shortening, chordal level, PLAX *24 % >29 LV posterior wall thickness, ED 7.02 mm IVS/LVPW ratio, ED 1.27 <1.3 Ventricular septum Septal thickness, ED 8.94 mm Left atrium Anterior-posterior dimension 30 mm Right ventricle RV internal dimension, ED, PLAX *17 mm 19-38 DOPPLER MEASUREMENTS ADULT Normal Mitral valve Peak E-wave velocity 89.8 cm/s Peak A-wave velocity 80.9 cm/s Peak gradient, D 3 mm Hg Peak E/A ratio 1.1 Tricuspid valve Regurgitant peak velocity 214 cm/s Peak RV-RA gradient, S 18 mm Hg Maximal regurgitant velocity 214 cm/s LEGEND: Mean values are shown as u=mean value. Asterisk (*) key values outside specified normal range. Prepared and signed by Darin Lovett [id number]
--- NOTE | 2017-01-05 11:04 | EKG ---
Date Performed: 01/04/2017 Time Performed: 12:51:44 PTAGE: 61 years EKG: Sinus rhythm NORMAL ECG PREVIOUS TRACING : 06/30/2016 14.14 DOCTOR: Alonzo Stover Interpretating Date/Time 01/05/2017 11:02:38
[2017-01-05] MEDS: LEVOFLOXACIN 500 MG TAB PO SCH (11:20)
[2017-01-05 12:00] VITALS: BP 112/59; PULSE 77; RESP 20; TEMP 97.9; O2SAT 97
[2017-01-05 16:00] VITALS: BP 121/59; PULSE 78; RESP 20; TEMP 98.2; O2SAT 97
[2017-01-05] MEDS: RESP: ALBUTEROL 2.5 MG/IPRATROPIUM 0.5 MG NEB (SCH) NEB ×3 (16:00→19:23)
[2017-01-05 20:00] VITALS: BP 123/60; PULSE 85; RESP 16; TEMP 98; O2SAT 97
[2017-01-05] MEDS ORDERED: TEMAZEPAM 15 MG CAP PO PRN (21:15)
[2017-01-05] MEDS: DOCUSATE SODIUM 100 MG CAP PO SCH (21:52)
--- NOTE | 2017-01-05 22:32 | PD.ONC.PN ---
Subjective Subjective Remarks patient seen earlier in the day resting comfortably chest discomfort with coughing no dyspnea/no hemoptysis Objective Data Date Time Temp Pulse Resp B/P Pulse Ox O2 Delivery O2 Flow Rate FiO2 01/05/17 20:00 98.0 85 16 123/60 97 01/05/17 16:00 98.2 78 20 121/59 97 01/05/17 12:00 97.9 77 20 112/59 97 01/05/17 08:00 97.4 79 18 134/70 97 01/05/17 08:00 76 01/05/17 04:00 97.6 74 16 118/65 97 01/05/17 00:00 98.1 79 16 130/63 96 01/05/17 01/05/17 01/05/17 07:00 15:00 23:00 Intake Total 240 ml 600 ml Balance 240 ml 600 ml Result Diagram: 01/05/17 0739 01/05/17 0739 Laboratory Results Laboratory Tests Test 01/05/17 07:39 White Blood Count 1.0 TH/MM3 Red Blood Count 3.91 MIL/MM3 Hemoglobin 11.5 GM/DL Hematocrit 33.6 % Mean Corpuscular Volume 86.0 FL Mean Corpuscular Hemoglobin 29.4 PG Mean Corpuscular Hemoglobin 34.2 % Concent Red Cell Distribution Width 14.6 % Platelet Count 98 TH/MM3 Mean Platelet Volume 7.9 FL Neutrophils (%) (Auto) 65.4 % Lymphocytes (%) (Auto) 30.3 % Monocytes (%) (Auto) 3.9 % Eosinophils (%) (Auto) 0.0 % Basophils (%) (Auto) 0.4 % Neutrophils # (Auto) 0.6 TH/MM3 Lymphocytes # (Auto) 0.3 TH/MM3 Monocytes # (Auto) 0.0 TH/MM3 Eosinophils # (Auto) 0.0 TH/MM3 Basophils # (Auto) 0.0 TH/MM3 CBC Comment AUTO DIFF Differential Total Cells 100 Counted Neutrophils % (Manual) 71 % Band Neutrophils % 4 % Lymphocytes % 22 % Monocytes % 3 % Neutrophils # (Manual) 0.8 TH/MM3 Differential Comment FINAL DIFF MANUAL Platelet Estimate LOW Platelet Morphology Comment NORMAL Red Cell Morphology Comment NORMAL Sodium Level 141 MEQ/L Potassium Level 4.4 MEQ/L Chloride Level 108 MEQ/L Carbon Dioxide Level 25.0 MEQ/L Anion Gap 8 MEQ/L Blood Urea Nitrogen 15 MG/DL Creatinine 0.70 MG/DL Estimat Glomerular Filtration 85 ML/MIN Rate Random Glucose 163 MG/DL Calcium Level 8.1 MG/DL Culture Results Microbiology Date/Time Procedure Status Source Growth 01/04/17 12:25 Aerobic Blood Culture - Preliminary Resulted Blood Peripheral NO GROWTH IN 1 DAY 01/04/17 12:25 Anaerobic Blood Culture - Preliminary Resulted Blood Peripheral NO GROWTH IN 1 DAY 01/04/17 12:30 Aerobic Blood Culture - Preliminary Resulted Blood Peripheral NO GROWTH IN 1 DAY 01/04/17 12:30 Anaerobic Blood Culture - Preliminary Resulted Blood Peripheral NO GROWTH IN 1 DAY 01/04/17 12:30 Influenza Types A,B Antigen (OVI) - Final Complete Nasal Washing NEGATIVE FOR FLU A AND B ANTIGEN.... 01/04/17 12:35 Group A Streptococcus Screen (OVI) - Final Complete Throat 01/04/17 12:35 Group A Streptococcus Screen - Preliminary Resulted Throat NO BETA STREPTOCOCCI ISOLATED AT 24 H... 01/04/17 12:40 Urine Culture - Preliminary Resulted Urine Clean Catch NO GROWTH IN 24 HOURS. Administered Medications Medications (Trade) Dose Ordered Sig/Cyndie Route PRN Reason Start Time Stop Time Status Last Admin Dose Admin Sodium Chloride (NS Flush) 2 ml UNSCH PRN IVF FLUSH AFTER USING IV ACCESS 01/04/17 12:15 01/04/17 22:52 Methylprednisolone Sodium Succinate (SoluMEDROL INJ) 60 mg Q6HR IV PUSH 01/04/17 18:00 01/05/17 18:34 Levofloxacin (Levaquin) 500 mg DAILY PO 01/05/17 09:00 01/05/17 11:20 Alprazolam (Xanax) 0.25 mg Q6H PRN PO ANXIETY 01/04/17 17:15 01/05/17 00:13 Oxycodone HCl (Roxicodone) 10 mg Q4H PRN PO pain over 4 01/04/17 17:15 01/05/17 05:26 Docusate Sodium (Colace) 100 mg BID PO 01/05/17 21:00 01/05/17 21:52 Lactulose (Lactulose Liq) 30 ml DAILY PRN PO constipation 01/05/17 10:15 01/05/17 18:38 Temazepam (Restoril) 15 mg HS PRN PO INSOMNIA 01/05/17 21:15 01/05/17 21:52 Objective Remarks GENERAL: nad SKIN: Warm and dry. HEAD: Normocephalic. EYES: No scleral icterus. No injection or drainage. NECK: Supple, trachea midline. No JVD or lymphadenopathy. LYMPHATIC: No adenopathy. CARDIOVASCULAR: Regular rate and rhythm without murmurs. RESPIRATORY: Breath sounds equal bilaterally. No accessory muscle use. GASTROINTESTINAL: Abdomen soft, non-tender, nondistended. EXTREMITIES: No cyanosis, or edema. Assessment/Plan Problem List: (1) Anemia Status: Acute (2) Nausea & vomiting Status: Acute (3) Pericarditis Status: Acute (4) UTI (urinary tract infection) Status: Acute (5) Leukopenia Status: Acute (6) Thrombocytopenia Status: Acute (7) Breast cancer Status: Chronic (8) Chest pain Status: Acute Assessment 61-year-old female with history of Stage II invasive breast cancer. This a hormone receptor breast cancer which is also HER2 positive. She has undergone lumpectomy followed by adjuvant chemotherapy. She also received adjuvant radiation treatments. She is currently on anti-HER2 therapy with Herceptin. She presents to the emergency department with chest pain. 1. Pleuritic chest pain//? pericarditis-- exacerbated by movement and cough - 2D cardiac echo - Treat with Steroids and anti-inflammatory drugs - CTA and Chest X-ray w/o any acute pathology 2. leukopenia and thrombocytopenia. This is secondary to chemotherapy effect. Worsening Leukopenia. ANC is still above 500. We will continue to monitor. 3. UTI. Urine cultures pending. continue IV antibiotics. Blood cultures are pending. Urine cultures are also pending. 4. Constipation: senna and colace. lactulose prn 5. DVT prophylaxis: start Lovenox prophy dose Time spent with patient 30 minutes d/w RN Problem Qualifiers (1) Pericarditis: Qualified Code: I30.9 - Acute pericarditis, unspecified type (2) UTI (urinary tract infection): Qualified Code: N39.0 - Urinary tract infection without hematuria, site unspecified Fredi Cai MD Jan 05, 2017 22:32
[2017-01-05] MEDS ORDERED: DOCUSATE SODIUM 50 MG/SENNA 8.6 MG TAB PO SCH (22:45)
[2017-01-06] VITALS: BP 102/52; PULSE 75; RESP 15; TEMP 97.7; O2SAT 98
[2017-01-06] MEDS: methylPREDNISolone SOD SUCC 125 MG/2 ML VIAL IV PUSH SCH ×2 (01:06→06:05)
[2017-01-06 04:00] VITALS: BP 114/59; PULSE 78; RESP 16; TEMP 98.8; O2SAT 98
[2017-01-06 07:13] LABS: AUTOMATED NEUTROPHIL # 3.2 TH/MM3 (1.8-7.7); BASOPHIL % 0.1 % (0.0-2.0); EOSINOPHIL % 0.2 % (0.0-4.0); HEMATOCRIT 32.4 % (35.0-46.0); HEMO FLAGS AUTO DIFF; LYMPH % 9.9 % (9.0-44.0); LYMPHOCYTE # 0.4 TH/MM3 (1.0-4.8); MEAN CELL VOLUME 85.8 FL (80.0-100.0); MEAN CORPUSCULAR HEMOGLOBIN 28.7 PG (27.0-34.0); MEAN CORPUSCULAR HGB CONC 33.4 % (32.0-36.0); MONO % 5.7 % (0.0-8.0); NEUT % 84.1 % (16.0-70.0); PLATELET COUNT 91 TH/MM3 (150-450); RED BLOOD COUNT 3.78 MIL/MM3 (4.00-5.30); RED CELL DISTRIBUTION WIDTH 14.5 % (11.6-17.2); WHITE BLOOD COUNT 3.8 TH/MM3 (4.0-11.0)
[2017-01-06 07:41] VITALS: PULSE 69
[2017-01-06 08:00] VITALS: BP 122/58; PULSE 73; RESP 16; TEMP 97.8; O2SAT 97
[2017-01-06] MEDS: RESP: ALBUTEROL 2.5 MG/IPRATROPIUM 0.5 MG NEB (SCH) NEB ×2 (08:00→11:09)
[2017-01-06] MEDS: DOCUSATE SODIUM 100 MG CAP PO SCH (08:05)
[2017-01-06] MEDS: LEVOFLOXACIN 500 MG TAB PO SCH (08:06)
[2017-01-06] MEDS: SODIUM CHLORIDE 0.9% FLUSH 10 ML FLUSH IVF PRN (08:13)
[2017-01-06 08:42] LABS: PLATELET ESTIMATE SMEAR LOW (NORMAL); PLATELET MORPHOLOGY NORMAL (NORMAL)
[2017-01-06 08:43] LABS: SCAN/DIFF AUTO DIFF CONFIRMED
[2017-01-06] MEDS ORDERED: PANTOPRAZOLE SOD 40 MG DELAYED RELEASE TAB PO SCH (09:00)
--- NOTE | 2017-01-06 09:05 | PD.PN.STU ---
Subjective Remarks 61 year old female presented to [place] ED 2 days ago with complaints of substernal chest pain and shortness of breath. Chest pain was worse with cough and deep inspiration. Today the pt states that she feels better. She notices very little chest pain with cough and deep inspiration. Patient states that she feels anxious after albuterol treatments with tremulousness and palpitations. She denies any SOB, chest pain, lightheadedness, dizziness, abdominal pain, N/V. Objective Vitals Vital Signs Date Time Temp Pulse Resp B/P Pulse Ox O2 Delivery O2 Flow Rate FiO2 01/06/17 04:00 98.8 78 16 114/59 98 01/06/17 00:00 97.7 75 15 102/52 98 01/05/17 20:00 98.0 85 16 123/60 97 01/05/17 16:00 98.2 78 20 121/59 97 01/05/17 12:00 97.9 77 20 112/59 97 I/O 01/05/17 01/05/17 01/05/17 01/06/17 01/06/17 01/06/17 07:00 15:00 23:00 07:00 15:00 23:00 Intake Total 240 ml 600 ml 480 ml Balance 240 ml 600 ml 480 ml Intake Oral 240 ml 600 ml 480 ml # Voids 1 3 5 # Bowel Movements 0 0 Result Diagram: 01/06/17 0521 01/05/17 0739 Other Results Laboratory Tests Test 01/06/17 05:21 White Blood Count 3.8 TH/MM3 Red Blood Count 3.78 MIL/MM3 Hemoglobin 10.8 GM/DL Hematocrit 32.4 % Mean Corpuscular Volume 85.8 FL Mean Corpuscular Hemoglobin 28.7 PG Mean Corpuscular Hemoglobin 33.4 % Concent Red Cell Distribution Width 14.5 % Platelet Count 91 TH/MM3 Mean Platelet Volume 8.5 FL Neutrophils (%) (Auto) 84.1 % Lymphocytes (%) (Auto) 9.9 % Monocytes (%) (Auto) 5.7 % Eosinophils (%) (Auto) 0.2 % Basophils (%) (Auto) 0.1 % Neutrophils # (Auto) 3.2 TH/MM3 Lymphocytes # (Auto) 0.4 TH/MM3 Monocytes # (Auto) 0.2 TH/MM3 Eosinophils # (Auto) 0.0 TH/MM3 Basophils # (Auto) 0.0 TH/MM3 CBC Comment AUTO DIFF Differential Comment AUTO DIFF CONFIRMED Platelet Estimate LOW Platelet Morphology Comment NORMAL Hematology Comments Objective Remarks GENERAL: Well- developed, well- nourished patient, in no apparent distress. SKIN: No rashes, ecchymoses or lesions. Cool and dry. HEAD: Atraumatic. Normocephalic. EYES: No scleral icterus. No injection or drainage. ENT: Nose without bleeding, purulent drainage or septal hematoma. Mouth dry. Airway patent. NECK: Trachea midline. Supple CARDIOVASCULAR: Regular rate and rhythm without murmurs, gallops, or rubs. RESPIRATORY: Clear to auscultation. Breath sounds equal bilaterally. No wheezes , rales, or rhonchi. GASTROINTESTINAL: Abdomen soft, non-tender, nondistended. No hepato-splenomegaly , or palpable masses. No guarding. MUSCULOSKELETAL: Extremities without clubbing, cyanosis, or edema. No joint tenderness, effusion, or edema noted. NEUROLOGICAL: Cranial nerves II through XII intact. Normal speech. A/P Assessment and Plan Problem List: (1) Chest pain Status: Acute Plan: - Pt seems to have begun with an URI that moved into upper chest. - Most likely costochondritis. - Coughing with associated anterior chest pain and tenderness has significantly improved. - No pulmonary embolism on CTA. - No areas of PNA on CTA. - No valvular abnormalities or inflammatory process. - Thrombocytopenia/leukopenia likely related to chemo. - Pt would like to be DC home - DC pt on Abx and steroids (2) Leukopenia Status: Acute Plan: see above (3) Thrombocytopenia Status: Acute Plan: see above (4) Breast cancer Status: Chronic Plan: chemo agents per Tiara Colbert M3 Jan 06, 2017 09:05 Plan: chemo agents per Tiara Colbert M3 Jan 06, 2017 09:05 Tiara Hernández M3 Jan 06, 2017 09:05
--- NOTE | 2017-01-06 09:43 | HHI.PR ---
Subjective Remarks much better. mild chest wall pain no sob. wants to go home. Objective Vitals heart reg lung cta abd s/nt ext no edema mild ant chest wall tenderness. Vital Signs Date Time Temp Pulse Resp B/P Pulse Ox O2 Delivery O2 Flow Rate FiO2 01/06/17 08:00 97.8 73 16 122/58 97 01/06/17 04:00 98.8 78 16 114/59 98 01/06/17 00:00 97.7 75 15 102/52 98 01/05/17 20:00 98.0 85 16 123/60 97 01/05/17 16:00 98.2 78 20 121/59 97 01/05/17 12:00 97.9 77 20 112/59 97 01/05/17 01/05/17 01/06/17 15:00 23:00 07:00 Intake Total 600 ml 480 ml Balance 600 ml 480 ml Intake Oral 600 ml 480 ml # Voids 3 5 # Bowel Movements 0 Result Diagram: 01/06/17 0521 01/05/17 0739 A/P Problem List: (1) Chest pain Status: Acute Plan: Pt seems to have started with uri moving into upper chest. coughing with associated ant cp and tenderness on exam. probably costochondritis. no pulmonary embolism on CTA. no areas of PNA on CTA. will evaluate the myocardium and pericardium for inflammatory process. thrombocytopenia/leukopenia felt related to chemo. viral illness also considered. echo negative for pericarium effusion. lvf ok feels better. dc home on abx and steroid taper f/u oncology. she will take laxatives. (2) Leukopenia Status: Acute Plan: see above (3) Thrombocytopenia Status: Acute Plan: see above (4) Breast cancer Status: Chronic Plan: chemo agents per Blair Carter MD Jan 06, 2017 09:43
[2017-01-06] MEDS ORDERED: PRED10 PO (09:45)
[2017-01-06] MEDS ORDERED: LEVA500T PO (09:45)
--- NOTE | 2017-01-06 09:46 | HHI.DCPOC ---
Discharge Care Plan Diagnosis: (1) URI (upper respiratory infection) (2) Acute costochondritis (3) Leukopenia (4) Thrombocytopenia Goals to Promote Your Health * To prevent worsening of your condition and complications * To maintain your health at the optimal level Directions to Meet Your Goals Take your medications as prescribed Follow your dietary instruction Follow activity as directed Keep your appointments as scheduled Take your immunizations and boosters as scheduled If your symptoms worsen call your PCP, if no PCP go to Urgent Care Center or Emergency Room Smoking is Dangerous to Your Health. Avoid second hand smoke Call the 24-hour hour crisis hotline for domestic abuse at Blair Zurita MD Jan 06, 2017 09:46
--- NOTE | 2017-01-06 11:56 | PD.ONC.PN ---
Subjective Subjective Remarks Afebrile overnight. Patient feeling much better and eager to go home. Resting comfortably. No BM yet. Objective Data Date Time Temp Pulse Resp B/P Pulse Ox O2 Delivery O2 Flow Rate FiO2 01/06/17 08:00 97.8 73 16 122/58 97 01/06/17 07:41 69 01/06/17 04:00 98.8 78 16 114/59 98 01/06/17 00:00 97.7 75 15 102/52 98 01/05/17 20:00 98.0 85 16 123/60 97 01/05/17 16:00 98.2 78 20 121/59 97 01/05/17 12:00 97.9 77 20 112/59 97 01/06/17 01/06/17 01/06/17 07:00 15:00 23:00 Intake Total 480 ml Balance 480 ml Result Diagram: 01/06/17 0521 01/05/17 0739 Laboratory Results Laboratory Tests Test 01/06/17 05:21 White Blood Count 3.8 TH/MM3 Red Blood Count 3.78 MIL/MM3 Hemoglobin 10.8 GM/DL Hematocrit 32.4 % Mean Corpuscular Volume 85.8 FL Mean Corpuscular Hemoglobin 28.7 PG Mean Corpuscular Hemoglobin 33.4 % Concent Red Cell Distribution Width 14.5 % Platelet Count 91 TH/MM3 Mean Platelet Volume 8.5 FL Neutrophils (%) (Auto) 84.1 % Lymphocytes (%) (Auto) 9.9 % Monocytes (%) (Auto) 5.7 % Eosinophils (%) (Auto) 0.2 % Basophils (%) (Auto) 0.1 % Neutrophils # (Auto) 3.2 TH/MM3 Lymphocytes # (Auto) 0.4 TH/MM3 Monocytes # (Auto) 0.2 TH/MM3 Eosinophils # (Auto) 0.0 TH/MM3 Basophils # (Auto) 0.0 TH/MM3 CBC Comment AUTO DIFF Differential Comment AUTO DIFF CONFIRMED Platelet Estimate LOW Platelet Morphology Comment NORMAL Hematology Comments Culture Results Microbiology Date/Time Procedure Status Source Growth 01/04/17 12:25 Aerobic Blood Culture - Preliminary Resulted Blood Peripheral NO GROWTH IN 2 DAYS 01/04/17 12:25 Anaerobic Blood Culture - Preliminary Resulted Blood Peripheral NO GROWTH IN 2 DAYS 01/04/17 12:30 Aerobic Blood Culture - Preliminary Resulted Blood Peripheral NO GROWTH IN 2 DAYS 01/04/17 12:30 Anaerobic Blood Culture - Preliminary Resulted Blood Peripheral NO GROWTH IN 2 DAYS 01/04/17 12:30 Influenza Types A,B Antigen (OVI) - Final Complete Nasal Washing NEGATIVE FOR FLU A AND B ANTIGEN.... 01/04/17 12:35 Group A Streptococcus Screen (OVI) - Final Complete Throat 01/04/17 12:35 Group A Streptococcus Screen - Final Complete Throat NO GP A BETA STREP ISOLATED. 01/04/17 12:40 Urine Culture - Final Complete Urine Clean Catch NO GROWTH IN 48 HOURS. Administered Medications Medications (Trade) Dose Ordered Sig/Cyndie Route PRN Reason Start Time Stop Time Status Last Admin Dose Admin Sodium Chloride (NS Flush) 2 ml UNSCH PRN IVF FLUSH AFTER USING IV ACCESS 01/04/17 12:15 01/06/17 08:13 Methylprednisolone Sodium Succinate (SoluMEDROL INJ) 60 mg Q6HR IV PUSH 01/04/17 18:00 01/06/17 06:05 Levofloxacin (Levaquin) 500 mg DAILY PO 01/05/17 09:00 01/06/17 08:06 Alprazolam (Xanax) 0.25 mg Q6H PRN PO ANXIETY 01/04/17 17:15 01/05/17 00:13 Oxycodone HCl (Roxicodone) 10 mg Q4H PRN PO pain over 4 01/04/17 17:15 01/05/17 05:26 Pantoprazole Sodium (Protonix) 40 mg DAILY PO 01/06/17 09:00 01/06/17 08:06 Docusate Sodium (Colace) 100 mg BID PO 01/05/17 21:00 01/06/17 08:05 Lactulose (Lactulose Liq) 30 ml DAILY PRN PO constipation 01/05/17 10:15 01/05/17 18:38 Temazepam (Restoril) 15 mg HS PRN PO INSOMNIA 01/05/17 21:15 01/05/17 21:52 Senna/Docusate Sodium ([place]-Colace) 1 tab BID PO 01/05/17 22:45 01/06/17 08:12 Objective Remarks GENERAL: Pleasant elderly female, sitting up in bed in nad. SKIN: Warm and dry. HEAD: Normocephalic. EYES: No injection or drainage. NECK: Supple, trachea midline. CARDIOVASCULAR: Regular rate and rhythm RESPIRATORY: Breath sounds equal bilaterally. No accessory muscle use. GASTROINTESTINAL: Abdomen soft, non-tender, nondistended. EXTREMITIES: No cyanosis NEUROLOGICAL: No obvious focal deficit. Awake, alert, and oriented x3. Assessment/Plan Problem List: (1) Anemia Status: Acute (2) Nausea & vomiting Status: Acute (3) Pericarditis Status: Acute (4) UTI (urinary tract infection) Status: Acute (5) Leukopenia Status: Acute (6) Thrombocytopenia Status: Acute (7) Breast cancer Status: Chronic (8) Chest pain Status: Acute Assessment 61-year-old female with history of Stage II invasive breast cancer. This a hormone receptor breast cancer which is also HER2 positive. She has undergone lumpectomy followed by adjuvant chemotherapy. She also received adjuvant radiation treatments. She is currently on anti-HER2 therapy with Herceptin. She presents to the emergency department with chest pain. 1. Pleuritic chest pain//? pericarditis-- exacerbated by movement and cough - 2D cardiac echo - Treat with Steroids and anti-inflammatory drugs - CTA and Chest X-ray w/o any acute pathology 4/6: pain improved. patient being discharged home. 2. leukopenia and thrombocytopenia. This is secondary to chemotherapy effect. Worsening Leukopenia. ANC is still above 500. 4/6: WBC improved. platelet count ok, will continue to monitor 3. UTI. Urine cultures pending. continue IV antibiotics. Blood cultures are pending. Urine cultures are also pending. 4/6: urine culture no growth. 4. Constipation: senna and colace. lactulose prn 5. DVT prophylaxis: on Lovenox prophy dose Attending Statement The exam, history, and the medical decision-making described in the above note were completed with the assistance of the mid-level provider. I reviewed and agree with the findings presented. I attest that I had a [id number] encounter with the patient on the same day, and personally performed and documented my assessment and findings in the medical record. feeling better. counts improved Ok to d/c home Problem Qualifiers (1) Pericarditis: Qualified Code: I30.9 - Acute pericarditis, unspecified type (2) UTI (urinary tract infection): Qualified Code: N39.0 - Urinary tract infection without hematuria, site unspecified Екатерина Matos Jan 06, 2017 11:56 Fredi Cai MD Jan 06, 2017 23:10
[2017-01-06] MEDS ORDERED: ENOXAPARIN SODIUM 40 MG/0.4 ML SYRINGE SQ SCH (20:00)
== END 2017-01-06 11:34 | disposition home or self-care (01) ==
LOC: NEPE 11:52 → NEDA 16:10 → INTOOBSV 16:10 → N04B 19:20
PROVIDERS: ADMIT Hospitalist; ATTEND Hospitalist
DX: R07.81 Pleurodynia (principal); C50.911 Malignant neoplasm of unspecified site of right female breast; D72.819 Decreased white blood cell count, unspecified; K59.00 Constipation, unspecified; D69.6 Thrombocytopenia, unspecified; N39.0 Urinary tract infection, site not specified; I10 Essential (primary) hypertension; F41.9 Anxiety disorder, unspecified; M81.0 Age-related osteoporosis without current pathological fracture; K21.9 Gastro-esophageal reflux disease without esophagitis; Z17.0 Estrogen receptor positive status [ER+]; Z92.3 Personal history of irradiation; Z88.5 Allergy status to narcotic agent; Z88.8 Allergy status to other drugs, medicaments and biological substances
CPT/HCPCS: 71010; 71275; 80048; 80053; 81001; 82550; 83605; 83690; 83735; 84484; 85007; 85025; 85027; 85610; 85730; 87040; 87081; 87086; 87804; 87880; 93005; 93306; 94150; 94640; 94664; 96365; 96375; 99285; G0378; J0692; J2405; J2930; J7030; J7040; Q9967

== ENCOUNTER 2017-04-19 15:02 | Emergency (ER) | payer OTHER ==
[~2017-04-19] VITALS: Ht 157.5 cm; Wt 50.0 kg
[~2017-04-19 15:02] MED LIST changes: -ALPR.25 PO; +ALPR0.25 PO; +LEVA500T PO; +OXYC-395 PO; -OXYC10TA8 PO; +PRED10 PO; +TAMOPOW11 PO; -ZOFR4TAB3 PO; +ZOFR4TAB3 SL
[2017-04-19 15:04] VITALS: BP 136/78; PULSE 114; TEMP 98.3; O2SAT 97
[2017-04-19] MEDS ORDERED: TAMO20TA6 PO (17:04)
[2017-04-19] MEDS ORDERED: MEGE5SUS3 PO (17:05)
[2017-04-19] MEDS ORDERED: CALC1TAB87 PO (17:08)
[2017-04-19] MEDS ORDERED: VENL75TA PO (17:08)
[2017-04-19] MEDS ORDERED: MARI5CAP PO (17:08)
[2017-04-19] MEDS ORDERED: SODIUM CHLOR 0.9% 1000 ML INJ 1,000 ML IV SCH (17:21)
[2017-04-19] MEDS ORDERED: ONDANSETRON HCL 4 MG/2 ML VIAL ONE (17:22)
[2017-04-19 17:30] VITALS: BP 142/69; PULSE 85; RESP 15; O2SAT 96
[2017-04-19] MEDS ORDERED: ONDANSETRON HCL 4 MG/2 ML VIAL IVP ONE (17:30)
[2017-04-19] MEDS ORDERED: SODIUM CHLORIDE 0.9% FLUSH 10 ML FLUSH IV FLUSH PRN (17:30)
--- NOTE | 2017-04-19 17:41 | PD ---
HPI Chief Complaint: GI Complaint Time Seen by Provider: 17:21 Travel History International Travel<30 days: No Contact w/Intl Traveler<30days: No Traveled to known affect area: No History of Present Illness HPI 62-year-old female came to the emergency room with history of vomiting since past 2-3 days. Patient says she has barely been able to keep anything down. Yesterday was not as bad but this morning the vomiting started again. She has history of breast cancer and received her last chemotherapy in March. She has not seen her oncologist yet. However when this vomiting started she called the office and was told to either go to her primary care or come to the emergency room. Patient chose to come to the ER. Vital signs otherwise stable. She also describes hearing this whooshing sound in her brain every now and then. Patient was tachycardic in triage. She also appeared a little anxious to me. She was awake and answering questions appropriately. PFSH Past Medical History Narrative Medical List of her past medical, surgical, social and family history reviewed from the nursing note. Arthritis: Yes Blood Disorders: No Anxiety: Yes Depression: Yes Heart Rhythm Problems: No Cancer: Yes Cardiovascular Problems: Yes (HTN) High Cholesterol: Yes Chemotherapy: Yes Chest Pain: Yes Congestive Heart Failure: No Diabetes: No Endocrine: No Genitourinary: Yes (left kidney is smaller than right) Hypertension: Yes Immune Disorder: Yes (ca) Implanted Vascular Access Dvce: Yes Kidney Stones: No Musculoskeletal: Yes Neurologic: Yes Psychiatric: Yes Reproductive: Yes (hysterectomy fibroid) Respiratory: No Radiation Therapy: No Renal Failure: No Sickle Cell Disease: No Thyroid Disease: No Tetanus Vaccination: Unknown Influenza Vaccination: No ?: Not Past Surgical History Abdominal Surgery: No AICD: No Arteriovenous Shunt: No Body Medical Devices: infusaport Cardiac Surgery: No Section: Yes Ear Surgery: Yes Endocrine Surgery: Yes Eye Surgery: Yes Genitourinary Surgery: No Gynecologic Surgery: Yes (hysterectomy, , rt. breast lumpectomy) Hysterectomy: Yes Insulin Pump: No Joint Replacement: No Oral Surgery: Yes Thoracic Surgery: No Tonsillectomy: Yes Other Surgery: Yes (lumpectomy right side ) Family History Family Breast Cancer: Yes Social History Alcohol Use: No Tobacco Use: Yes Substance Use: No Allergies-Medications (Allergen,Severity, Reaction): Coded Allergies: Codeine (Verified Allergy, Severe, ITCHING, 04/19/17) Tenormin (Verified Allergy, Severe, CRAMPING / RASH, 04/19/17) Visken (Verified Allergy, Severe, CRAMPING, 04/19/17) Comments List of her allergies reviewed from the nursing note. Reported Meds & Prescriptions Reported Meds & Active Scripts Active Zofran Odt (Ondansetron Odt) 4 Mg Tab 4 Mg SL Q6HR PRN Reported Effexor (Venlafaxine HCl) 75 Mg Tab 75 Mg PO DAILY Calcium 600 with Vitamin D (Calcium Carbonate-Cholecalciferol) 600-400 mg-Unit Tab 2 Tab PO DAILY Marinol (Dronabinol) 5 Mg Cap 5 Mg PO BID PRN Megestrol Acetate 400 Mg/10 Ml Oral.susp 400 Mg PO DAILY Tamoxifen (Tamoxifen Citrate) 20 Mg Tab 20 Mg PO DAILY Oxycodone (Oxycodone HCl) 10 Mg Tab 10 Mg PO TID PRN Alprazolam 0.25 Mg Tab 0.25 Mg PO Q6H PRN Zofran Odt (Ondansetron Odt) 4 Mg Tab 4 Mg SL Q6HR PRN Narrative Medication List of her home medications reviewed from the nursing note. Review of Systems Except as stated in HPI: all other systems reviewed are Neg Physical Exam Narrative GENERAL: Awake, alert, anxious, no obvious distress SKIN: Focused skin assessment warm/dry. HEAD: Atraumatic. Normocephalic. EYES: Pupils equal and round. No scleral icterus. No injection or drainage. ENT: No nasal bleeding or discharge. Dry mucous membrane and coated tongue NECK: Trachea midline. No JVD. CARDIOVASCULAR: Regular rate and rhythm. No murmur appreciated. RESPIRATORY: No accessory muscle use. Clear to auscultation. Breath sounds equal bilaterally. GASTROINTESTINAL: Abdomen soft, non-tender, nondistended. Hepatic and splenic margins not palpable. MUSCULOSKELETAL: No obvious deformities. No clubbing. No cyanosis. No edema. NEUROLOGICAL: Awake and alert. No obvious cranial nerve deficits. Motor grossly within normal limits. Normal speech. PSYCHIATRIC: Appropriate mood and affect; insight and judgment normal. Data Data Last Documented VS Orders Basic Metabolic Panel (Bmp) (04/19/17 17:21) Complete Blood Count With Diff (04/19/17 17:21) Urinalysis - C+S If Indicated (04/19/17 17:21) Iv Access Insert/Monitor (04/19/17 17:21) Ecg Monitoring (04/19/17 17:21) Oximetry (04/19/17 17:21) Ondansetron Inj (Zofran Inj) (04/19/17 17:30) Sodium Chlor 0.9% 1000 Ml Inj (Ns 1000 M (04/19/17 17:21) Sodium Chloride 0.9% Flush (Ns Flush) (04/19/17 17:30) Ct Brain W/O Iv Contrast(Rout) (04/19/17 ) Ondansetron Inj (Zofran Inj) (04/19/17 17:22) Alprazolam (Xanax) (04/19/17 19:15) Mri Brain W&W/O Contrast (04/19/17 ) Gadodiamide Pf Inj (Omniscan Pf Inj) (04/19/17 20:36) Labs Laboratory Tests Test 04/20/17 19:35 Lab Scanned Report Lab Reports - Other [id number] [facility] Medical Decision Making Medical Screen Exam Complete: Yes Emergency Medical Condition: Yes Medical Record Reviewed: Yes Differential Diagnosis Dehydration, electrolyte abnormality, brain metastases Narrative Course 6:36 PM blood test results of back and BUN is slightly elevated which goes in favor of the dehydration. Patient was given Zofran and 1 L of IV fluid bolus. Currently awaiting for the head CT to be done and resulted. 7:02 PM blood test results of back and within acceptable limits. Head CT is done and results pending. Case was signed over to the oncoming ER physician. Procedures EKG Prior to Arrival: No Scripts Ondansetron Odt (Zofran Odt)4 Mg Tab4 Mg SL Q6HR PRN (Nausea/Vomiting) #15 TAB Prov:Leticia Ibarra MD 04/19/17 Miriam Fairchild MD Apr 19, 2017 17:41 Lymphocytes (%) (Auto) 16.0 % Monocytes (%) (Auto) 7.6 % Eosinophils (%) (Auto) 0.1 % Basophils (%) (Auto) 0.1 % Neutrophils # (Auto) 4.6 TH/MM3 Lymphocytes # (Auto) 1.0 TH/MM3 Monocytes # (Auto) 0.5 TH/MM3 Eosinophils # (Auto) 0.0 TH/MM3 Basophils # (Auto) 0.0 TH/MM3 CBC Comment DIFF FINAL Differential Comment Sodium Level 139 MEQ/L Potassium Level 4.2 MEQ/L Chloride Level 108 MEQ/L Carbon Dioxide Level 25.0 MEQ/L Anion Gap 6 MEQ/L Blood Urea Nitrogen 20 MG/DL Creatinine 0.93 MG/DL Estimat Glomerular Filtration 61 ML/MIN Rate Random Glucose 80 MG/DL Calcium Level 9.2 MG/DL Urine Color YELLOW Urine Turbidity CLEAR Urine pH 6.0 Urine Specific Orange 1.012 Urine Protein 30 mg/dL Urine Glucose (UA) NEG mg/dL Urine Ketones 10 mg/dL Urine Occult Blood NEG Urine Nitrite NEG Urine Bilirubin NEG Urine Urobilinogen LESS THAN 2.0 MG/DL Urine Leukocyte Esterase SMALL Urine RBC 1 /hpf Urine WBC 6 /hpf Urine Squamous Epithelial <1 /hpf Cells Urine Mucus FEW /lpf Microscopic Urinalysis Comment CULT NOT INDICATED MDM Medical Decision Making Medical Screen Exam Complete: Yes Emergency Medical Condition: Yes Medical Record Reviewed: Yes Differential Diagnosis Dehydration, electrolyte abnormality, brain metastases Narrative Course 6:36 PM blood test results of back and BUN is slightly elevated which goes in favor of the dehydration. Patient was given Zofran and 1 L of IV fluid bolus. Currently awaiting for the head CT to be done and resulted. 7:02 PM blood test results of back and within acceptable limits. Head CT is done and results pending. Case was signed over to the oncoming ER physician. Procedures EKG Prior to Arrival: Miriam Brooks MD Apr 19, 2017 17:41
[2017-04-19 18:11] LABS: AUTOMATED NEUTROPHIL # 4.6 TH/MM3 (1.8-7.7); BASOPHIL % 0.1 % (0.0-2.0); EOSINOPHIL % 0.1 % (0.0-4.0); HEMATOCRIT 40.7 % (35.0-46.0); HEMO FLAGS DIFF FINAL; MEAN CELL VOLUME 90.4 FL (80.0-100.0); MEAN CORPUSCULAR HEMOGLOBIN 30.5 PG (27.0-34.0); MEAN CORPUSCULAR HGB CONC 33.7 % (32.0-36.0); MONO % 7.6 % (0.0-8.0); NEUT % 76.2 % (16.0-70.0); PLATELET COUNT 150 TH/MM3 (150-450); RED BLOOD COUNT 4.51 MIL/MM3 (4.00-5.30); RED CELL DISTRIBUTION WIDTH 13.7 % (11.6-17.2)
[2017-04-19 18:30] LABS: POTASSIUM 4.2 MEQ/L (3.5-5.1)
[2017-04-19 18:35] LABS: BLOOD, URINE NEG (NEG); COMMENT (UR) CULT NOT INDICATED; CULTURE IF INDICATED CULT NOT INDICATED; GLUCOSE,URINE NEG (NEG); KETONE, URINE 10 mg/dL (NEG); MUCUS URINE FEW /lpf (OCC); NITRITE,URINE NEG (NEG); SQUAMOUS EPITHELIAL CELL URINE <1 /hpf (0-5); URINE COLOR YELLOW (YELLW/STRAW)
[2017-04-19 19:00] VITALS: BP 181/77; PULSE 90; RESP 16; O2SAT 98
--- NOTE | 2017-04-19 19:01 | RADRPT ---
EXAM DATE/TIME: 04/19/2017 18:22 [facility] COMPARISON: No previous studies available for comparison. INDICATIONS : Visual and auditory defects,nausea,vomiting,post treatment for breast cancer. RADIATION DOSE: 56.80 CTDIvol (mGy) MEDICAL HISTORY : Cardiovascular disease. Hypertension. Carcinoma, breast. SURGICAL HISTORY : Hysterectomy. section.Right breast lumpectomy ENCOUNTER: Initial ACUITY: 1 week PAIN SCALE: 0/10 LOCATION: cranial TECHNIQUE: Multiple contiguous axial images were obtained of the head. Using automated exposure control and adj ustment of the mA and/or kV according to patient size, radiation dose was kept as low as reasonably a chievable to obtain optimal diagnostic quality images. DICOM format image data is available electro nically for review and comparison. FINDINGS: There is patchy low attenuation in the periventricular white matter and basal ganglia bilaterally as well as the lenard, not specific. The appearance suggests microvascular ischemic disease however MRI of the brain with and without contrast is recommended for further evaluation to exclude underlying brai n metastases. CONCLUSION: Nonspecific areas of low density are identified as above and further evaluation with MRI is suggested . Sreedhar Montoya MD on April 19, 2017 at 18:59 Board Certified Radiologist. This report was verified electronically.
[2017-04-19] MEDS ORDERED: ALPRAZolam 0.5 MG TAB PO ONE (19:15)
[2017-04-19] MEDS ORDERED: GADODIAMIDE PF 287 MG/ML 10 ML VIAL (for RAD MRI) IV ONE (20:36)
--- NOTE | 2017-04-19 20:59 | RADRPT ---
EXAM DATE/TIME: 04/19/2017 20:27 [facility] COMPARISON: CT BRAIN W/O CONTRAST, April 19, 2017, 18:22. INDICATIONS : Mass. CONTRAST: 10 cc Omniscan (gadodiamide) IV MEDICAL HISTORY : Hypertension. Breast cancer. SURGICAL HISTORY : Hysterectomy. Tonsillectomy. section. Lumpectomy. ENCOUNTER: Initial ACUITY: 2 day PAIN SCORE: 0/10 LOCATION: Head. TECHNIQUE: Multiplanar, multisequence MRI of the brain was performed both prior to and following the administrat ion of paramagnetic contrast. FINDINGS: Diffusion weighted images demonstrate no evidence for acute infarction. There scattered foci of incre ased flair signal in the bilateral centrum semiovale and in periventricular white matter, as well as the. This is nonspecific and greater than expected for age. The leading consideration would be chroni c microvascular ischemic disease. There are no abnormal areas of enhancement identified specifically no masses are seen. CONCLUSION: 1. Nonspecific white matter disease. No masses. Sreedhar Montoya MD on April 19, 2017 at 20:56 Board Certified Radiologist. This report was verified electronically.
[2017-04-19 21:00] VITALS: BP 149/69; PULSE 90; RESP 16; O2SAT 97
[2017-04-19] MEDS ORDERED: ZOFR4TAB3 SL (21:19)
--- NOTE | 2017-04-19 21:19 | PD ---
Data Data Last Documented VS Vital Signs Date Time Temp Pulse Resp B/P Pulse Ox O2 Delivery O2 Flow Rate FiO2 04/19/17 17:30 85 15 142/69 96 Room Air 04/19/17 15:04 98.3 Orders Basic Metabolic Panel (Bmp) (04/19/17 17:21) Complete Blood Count With Diff (04/19/17 17:21) Urinalysis - C+S If Indicated (04/19/17 17:21) Iv Access Insert/Monitor (04/19/17 17:21) Ecg Monitoring (04/19/17 17:21) Oximetry (04/19/17 17:21) Ondansetron Inj (Zofran Inj) (04/19/17 17:30) Sodium Chlor 0.9% 1000 Ml Inj (Ns 1000 M (04/19/17 17:21) Sodium Chloride 0.9% Flush (Ns Flush) (04/19/17 17:30) Ct Brain W/O Iv Contrast(Rout) (04/19/17 ) Ondansetron Inj (Zofran Inj) (04/19/17 17:22) Alprazolam (Xanax) (04/19/17 19:15) Mri Brain W&W/O Contrast (04/19/17 ) Gadodiamide Pf Inj (Omniscan Pf Inj) (04/19/17 20:36) Labs Laboratory Tests Test 04/19/17 04/19/17 17:10 18:15 White Blood Count 6.0 TH/MM3 Red Blood Count 4.51 MIL/MM3 Hemoglobin 13.7 GM/DL Hematocrit 40.7 % Mean Corpuscular Volume 90.4 FL Mean Corpuscular Hemoglobin 30.5 PG Mean Corpuscular Hemoglobin 33.7 % Concent Red Cell Distribution Width 13.7 % Platelet Count 150 TH/MM3 Mean Platelet Volume 7.9 FL Neutrophils (%) (Auto) 76.2 % Lymphocytes (%) (Auto) 16.0 % Monocytes (%) (Auto) 7.6 % Eosinophils (%) (Auto) 0.1 % Basophils (%) (Auto) 0.1 % Neutrophils # (Auto) 4.6 TH/MM3 Lymphocytes # (Auto) 1.0 TH/MM3 Monocytes # (Auto) 0.5 TH/MM3 Eosinophils # (Auto) 0.0 TH/MM3 Basophils # (Auto) 0.0 TH/MM3 CBC Comment DIFF FINAL Differential Comment Sodium Level 139 MEQ/L Potassium Level 4.2 MEQ/L Chloride Level 108 MEQ/L Carbon Dioxide Level 25.0 MEQ/L Anion Gap 6 MEQ/L Blood Urea Nitrogen 20 MG/DL Creatinine 0.93 MG/DL Estimat Glomerular Filtration 61 ML/MIN Rate Random Glucose 80 MG/DL Calcium Level 9.2 MG/DL Urine Color YELLOW Urine Turbidity CLEAR Urine pH 6.0 Urine Specific [place] 1.012 Urine Protein 30 mg/dL Urine Glucose (UA) NEG mg/dL Urine Ketones 10 mg/dL Urine Occult Blood NEG Urine Nitrite NEG Urine Bilirubin NEG Urine Urobilinogen LESS THAN 2.0 MG/DL Urine Leukocyte Esterase SMALL Urine RBC 1 /hpf Urine WBC 6 /hpf Urine Squamous Epithelial <1 /hpf Cells Urine Mucus FEW /lpf Microscopic Urinalysis Comment CULT NOT INDICATED MDM Supervised Visit with ELDER: No Narrative Course This is a patient seen by Dr. Fairchild who came in with vomiting. Her labs are all reassuring. CT of the head demonstrated some nonspecific findings. An MRI is reassuring. Patient can be discharged home on Zofran. Diagnosis Primary Impression: Nausea and vomiting Qualified Code: R11.2 - Non-intractable vomiting with nausea, unspecified vomiting type Patient Instructions: General Instructions Additional Instruction: If you develop severe or worsening abdominal pain, fever>100.4, persistent vomiting or inability to eat or drink return to the emergency department immediately. Follow up with your primary care physician in 1-2 days for a check-up. Med/Other Pt SpecificInfo: Prescription(s) given Scripts Ondansetron Odt (Zofran Odt)4 Mg Tab4 Mg SL Q6HR PRN (Nausea/Vomiting) #15 TAB Prov:Leticia Ibarra MD 04/19/17 Disposition: 01 DISCHARGE HOME Condition: Stable Leticia Ibarra MD Apr 19, 2017 21:19
== END 2017-04-19 21:44 | disposition home or self-care (01) ==
LOC: NEPE 15:02
DX: R11.2 Nausea with vomiting, unspecified (principal); R00.0 Tachycardia, unspecified; F41.9 Anxiety disorder, unspecified; F32.9 Major depressive disorder, single episode, unspecified; I10 Essential (primary) hypertension; E78.00 Pure hypercholesterolemia, unspecified; M13.88 Other specified arthritis, other site; Z79.899 Other long term (current) drug therapy; Z85.3 Personal history of malignant neoplasm of breast
CPT/HCPCS: 70450; 70553; 80048; 81001; 85025; 96374; 99284; A9579; J2405; J7030

== ENCOUNTER 2017-07-15 14:08 | Emergency (ER) | payer OTHER ==
[~2017-07-15] VITALS: Ht 157.5 cm; Wt 48.0 kg
[~2017-07-15 14:08] MED LIST changes: +CALC1TAB87 PO; -LEVA500T PO; +MARI5CAP PO; +MEGE5SUS3 PO; -PRED10 PO; +TAMO20TA6 PO; -TAMOPOW11 PO; +VENL75TA PO
[2017-07-15 14:09] VITALS: BP 142/59; PULSE 107; RESP 15; TEMP 98.7; O2SAT 95
[2017-07-15] MEDS ORDERED: SODIUM CHLOR 0.9% 1000 ML INJ 1,000 ML IV SCH (15:51)
[2017-07-15] MEDS ORDERED: ONDANSETRON HCL 4 MG/2 ML VIAL IVP ONE (16:00)
--- NOTE | 2017-07-15 16:03 | PD ---
HPI Chief Complaint: GI Complaint Time Seen by Provider: 15:39 Travel History International Travel<30 days: No Contact w/Intl Traveler<30days: No Traveled to known affect area: No History of Present Illness HPI 62-year-old female here for evaluation of nausea/vomiting 9 months. Patient is reporting at least 2 episodes of vomiting per day. She reports the symptoms are unrelieved by oral Zofran and Reglan. She has been evaluated by multiple emergency room physicians, oncologist, rheumatologist for this same reason. She reports all test come back normal. 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 She is not currently receiving chemotherapy or radiation. She denies fever, chills, chest pain, shortness of breath, abdominal pain, diarrhea. PFSH Past Medical History Arthritis: Yes Blood Disorders: No Anxiety: Yes Depression: Yes Heart Rhythm Problems: No Cancer: Yes Cardiovascular Problems: Yes (HTN) High Cholesterol: Yes Chemotherapy: Yes Chest Pain: Yes Congestive Heart Failure: No Diabetes: No Endocrine: No Genitourinary: Yes (left kidney is smaller than right) Hypertension: Yes Immune Disorder: Yes (ca) Implanted Vascular Access Dvce: Yes Kidney Stones: No Musculoskeletal: Yes Neurologic: Yes Psychiatric: Yes Reproductive: Yes (hysterectomy fibroid) Respiratory: No Radiation Therapy: No Renal Failure: No Sickle Cell Disease: No Thyroid Disease: No ?: Not Past Surgical History Abdominal Surgery: No AICD: No Arteriovenous Shunt: No Body Medical Devices: infusaport Cardiac Surgery: No Section: Yes Ear Surgery: Yes Endocrine Surgery: Yes Eye Surgery: Yes Genitourinary Surgery: No Gynecologic Surgery: Yes (hysterectomy, , rt. breast lumpectomy) Hysterectomy: Yes Insulin Pump: No Joint Replacement: No Oral Surgery: Yes Thoracic Surgery: No Tonsillectomy: Yes Other Surgery: Yes (lumpectomy right side ) Social History Alcohol Use: No Tobacco Use: Yes Substance Use: No Allergies-Medications (Allergen,Severity, Reaction): Coded Allergies: atenolol (Unverified Allergy, Severe, CRAMPING / RASH, 05/17/17) codeine (Unverified Allergy, Severe, ITCHING, 05/17/17) pindolol (Unverified Allergy, Severe, CRAMPING, 05/17/17) Reported Meds & Prescriptions Reported Meds & Active Scripts Active Zofran Odt (Ondansetron Odt) 4 Mg Tab 4 Mg SL Q6HR PRN Reported Effexor (Venlafaxine HCl) 75 Mg Tab 75 Mg PO DAILY Calcium 600 with Vitamin D (Calcium Carbonate-Cholecalciferol) 600-400 mg-Unit Tab 2 Tab PO DAILY Marinol (Dronabinol) 5 Mg Cap 5 Mg PO BID PRN Megestrol Acetate 400 Mg/10 Ml Oral.susp 400 Mg PO DAILY Tamoxifen (Tamoxifen Citrate) 20 Mg Tab 20 Mg PO DAILY Oxycodone (Oxycodone HCl) 10 Mg Tab 10 Mg PO TID PRN Alprazolam 0.25 Mg Tab 0.25 Mg PO Q6H PRN Zofran Odt (Ondansetron Odt) 4 Mg Tab 4 Mg SL Q6HR PRN Review of Systems Except as stated in HPI: all other systems reviewed are Neg General / Constitutional: No: Fever Eyes: No: Visual changes HENT: No: Headaches Cardiovascular: No: Chest Pain or Discomfort Respiratory: No: Shortness of Breath Gastrointestinal: Positive: Nausea, Vomiting Genitourinary: No: Dysuria Physical Exam Narrative GENERAL: Alert, thin female who appears slightly older than her stated age SKIN: Focused skin assessment warm/dry. No areas of ecchymosis or petechiae HEAD: Atraumatic. Normocephalic. EYES: Pupils equal and round. No scleral icterus. No injection or drainage. ENT: No nasal bleeding or discharge. Mucous membranes pink and moist. NECK: Trachea midline. No JVD. CARDIOVASCULAR: Regular rate and rhythm. No murmur appreciated. RESPIRATORY: No accessory muscle use. Clear to auscultation. Breath sounds equal bilaterally. GASTROINTESTINAL: Abdomen soft, non-tender, nondistended. Hepatic and splenic margins not palpable. MUSCULOSKELETAL: No obvious deformities. No clubbing. No cyanosis. No edema. NEUROLOGICAL: Awake and alert. No obvious cranial nerve deficits. Motor grossly within normal limits. Normal speech. PSYCHIATRIC: Appropriate mood and affect; insight and judgment normal. Data Data Last Documented VS Vital Signs Date Time Temp Pulse Resp B/P (MAP) Pulse Ox O2 Delivery O2 Flow Rate FiO2 07/15/17 14:38 16 07/15/17 14:09 98.7 107 142/59 (86) 95 Orders Orders Complete Blood Count With Diff (07/15/17 15:51) Comprehensive Metabolic Panel (07/15/17 15:51) Iv Access Insert/Monitor (07/15/17 15:51) Ondansetron Inj (Zofran Inj) (07/15/17 16:00) Sodium Chlor 0.9% 1000 Ml Inj (Ns 1000 M (07/15/17 15:51) Labs Laboratory Tests Test 07/15/17 16:00 White Blood Count 5.1 TH/MM3 Red Blood Count 3.98 MIL/MM3 Hemoglobin 12.0 GM/DL Hematocrit 36.1 % Mean Corpuscular Volume 90.8 FL Mean Corpuscular Hemoglobin 30.2 PG Mean Corpuscular Hemoglobin Concent 33.3 % Red Cell Distribution Width 13.8 % Platelet Count 180 TH/MM3 Mean Platelet Volume 7.5 FL Neutrophils (%) (Auto) 64.2 % Lymphocytes (%) (Auto) 25.3 % Monocytes (%) (Auto) 10.2 % Eosinophils (%) (Auto) 0.2 % Basophils (%) (Auto) 0.1 % Neutrophils # (Auto) 3.3 TH/MM3 Lymphocytes # (Auto) 1.3 TH/MM3 Monocytes # (Auto) 0.5 TH/MM3 Eosinophils # (Auto) 0.0 TH/MM3 Basophils # (Auto) 0.0 TH/MM3 CBC Comment DIFF FINAL Differential Comment Blood Urea Nitrogen 13 MG/DL Creatinine 0.78 MG/DL Random Glucose 79 MG/DL Total Protein 6.5 GM/DL Albumin 3.5 GM/DL Calcium Level 8.9 MG/DL Alkaline Phosphatase 43 U/L Aspartate Amino Transf (AST/SGOT) 25 U/L Alanine Aminotransferase (ALT/SGPT) 14 U/L Total Bilirubin 0.4 MG/DL Sodium Level 138 MEQ/L Potassium Level 4.4 MEQ/L Chloride Level 104 MEQ/L Carbon Dioxide Level 26.2 MEQ/L Anion Gap 8 MEQ/L Estimat Glomerular Filtration Rate 75 ML/MIN [facility] Medical Decision Making Medical Screen Exam Complete: Yes Emergency Medical Condition: Yes Differential Diagnosis Nausea, vomiting, gastroparesis Narrative Course To the 62-year-old female here for evaluation of nausea/vomiting 9 months. Patient is reporting that her symptoms are unrelieved by her home medications of Zofran and Reglan. She reports she is under the care of advanced gastroenterology in [place] for the symptoms. She reports she has had extensive workups for these symptoms but identification of a cause has not been found. Patient reports at least 2 episodes of nausea vomiting per day for the last 9 months. She was most recently seen last week at [facility] where she received lab work, IV fluids, anti-nausea medications and discharged home. She denies abdominal pain, fever him about changes. The patient's physical exam is reassuring. IV access established, anti-nausea medications administered , 1 L normal saline administered. CBC: Unremarkable CMP: Unremarkable Patient reevaluated after antinausea meds and IV fluids patient reports symptom improvement. Lab findings discussed with patient. Plan will be to add Phenergan suppository as needed for breakthrough nausea and have her take her Zofran scheduled rather than PRN. She has follow-up appointment with GI this Tuesday for reevaluation. Diagnosis Primary Impression: Nausea and vomiting Qualified Codes: R11.2 - Nausea with vomiting, unspecified Referrals: [employer] Supervisor Additional Instructions: Keep your appointment with gastroenterology on Tuesday. Take her Zofran as scheduled every 8 hours as directed Use the Phenergan suppository for breakthrough nausea vomiting that is not controlled by Zofran Scripts Promethazine Supp (Phenergan Supp) 25 Mg Supp 25 MG RECTAL Q6H Y for NAUSEA OR VOMITING for 5 Days, #20 SUPP 0 Refills Prov: Marcelina Joy 07/15/17 Disposition: 01 DISCHARGE HOME Condition: Stable Marcelina Joy Jul 15, 2017 16:03
[2017-07-15 16:45] LABS: AUTOMATED NEUTROPHIL # 3.3 TH/MM3 (1.8-7.7); BASOPHIL % 0.1 % (0.0-2.0); EOSINOPHIL % 0.2 % (0.0-4.0); HEMATOCRIT 36.1 % (35.0-46.0); HEMO FLAGS DIFF FINAL; LYMPH % 25.3 % (9.0-44.0); LYMPHOCYTE # 1.3 TH/MM3 (1.0-4.8); MEAN CELL VOLUME 90.8 FL (80.0-100.0); MEAN CORPUSCULAR HEMOGLOBIN 30.2 PG (27.0-34.0); MEAN CORPUSCULAR HGB CONC 33.3 % (32.0-36.0); MONO % 10.2 % (0.0-8.0); NEUT % 64.2 % (16.0-70.0); PLATELET COUNT 180 TH/MM3 (150-450); RED BLOOD COUNT 3.98 MIL/MM3 (4.00-5.30); RED CELL DISTRIBUTION WIDTH 13.8 % (11.6-17.2); WHITE BLOOD COUNT 5.1 TH/MM3 (4.0-11.0)
[2017-07-15 16:55] LABS: ALT (GPT) 14 U/L (10-53); ANION GAP 8 MEQ/L (5-15); AST (GOT) 25 U/L (15-37); BICARBONATE 26.2 MEQ/L (21.0-32.0); BLOOD UREA NITROGEN 13 MG/DL (7-18); CHLORIDE 104 MEQ/L (98-107); GLOMERULAR FILTRATION RATE 75 ML/MIN (>89); POTASSIUM 4.4 MEQ/L (3.5-5.1); SODIUM (NA) 138 MEQ/L (136-145)
[2017-07-15 16:57] LABS: ALKALINE PHOSPHATASE 43 U/L (45-117); TOTAL BILIRUBIN ADULT 0.4 MG/DL (0.2-1.0)
[2017-07-15] MEDS ORDERED: PROM1SUP7 RECTAL (17:31)
== END 2017-07-15 18:45 | disposition home or self-care (01) ==
LOC: NEPD 14:08
DX: R11.2 Nausea with vomiting, unspecified (principal); I10 Essential (primary) hypertension; F41.9 Anxiety disorder, unspecified; F32.9 Major depressive disorder, single episode, unspecified; E78.5 Hyperlipidemia, unspecified; Z86.73 Personal history of transient ischemic attack (TIA), and cerebral infarction without residual deficits
CPT/HCPCS: 80053; 85025; 96361; 96374; 99284; J2405; J7030